=== PATIENT | male | born 1965 | race Caucasian/White ===

== ENCOUNTER 2017-04-24 17:51 | Emergency (ER) | payer OTHER ==
[~2017-04-24] VITALS: Ht 177.8 cm; Wt 113.4 kg
[2017-04-24] MEDS ORDERED: MOTRIN800 MG PO (21:10)
[2017-04-24] MEDS ORDERED: NORCO 5/3251 TABLET PO (21:10)
[2017-04-24] MEDS ORDERED: SKELAXIN800 MG PO (21:10)
[2017-04-24 21:26] VITALS: BP 142/90
== END 2017-04-24 21:27 | disposition home or self-care (01) ==
LOC: EME 17:51
DX: S29.012A Strain of muscle and tendon of back wall of thorax, initial encounter (principal); M25.511 Pain in right shoulder; X50.0XXA Overexertion from strenuous movement or load, initial encounter; Y93.89 Activity, other specified; F17.200 Nicotine dependence, unspecified, uncomplicated
CPT/HCPCS: 73030; 93005; 99281; 99284; J1885

== ENCOUNTER 2017-06-05 18:44 | Emergency (ER) | payer OTHER ==
[~2017-06-05] VITALS: Ht 177.8 cm; Wt 109.9 kg
[~2017-06-05 18:44] MED LIST: MOTRIN800 MG PO; NORCO 5/3251 TABLET PO; SKELAXIN800 MG PO
[2017-06-05 19:15] LABS: HEMOGLOBIN 15.6 G/DL (12.5-16.6); MCH 32.2 PG (29.0-34.0); MCHC 36.3 G/DL (30.0-36.0); MCV 88.7 FL (86-99); PLATELET COUNT 265 K/uL (156-360); RBC DIS.WIDTH-CV 11.9 % (11.8-14.6); RBC DIS.WIDTH-SD 38.3 % (39-53); RED BLOOD COUNT 4.85 M/uL (4.00-5.50); WHITE BLOOD COUNT 11.9 K/uL (4.1-10.2)
[2017-06-05 19:28] LABS: CHLORIDE 107 mEq/L (99-109); POTASSIUM 3.7 mEq/L (3.7-5.4); SODIUM 139 mEq/L (136-147)
[2017-06-05 19:30] LABS: GLUCOSE 135 mg/dL (70-99)
[2017-06-05 19:34] LABS: CREATININE 0.8 mg/dL (0.6-1.3); GFR ESTIMATE (CALCULATED) > 59 mL/min/ (58.99-99999)
[2017-06-05 19:35] LABS: TROP-I INTERPRETATION NEGATIVE; TROPONIN-I < 0.01 ng/mL (0.0-0.30); UREA NITROGEN (BUN) 14 mg/dL (9-23)
[2017-06-05 23:01] LABS: TROP-I INTERPRETATION NEGATIVE; TROPONIN-I < 0.01 ng/mL (0.0-0.30)
[2017-06-05] MEDS ORDERED: NAPROXEN500 MG PO (23:05)
[2017-06-05] MEDS ORDERED: ZITHROMAX Z-PA250 MG PO (23:14)
[2017-06-05 23:19] VITALS: BP 118/78
== END 2017-06-05 23:25 | disposition home or self-care (01) ==
LOC: EME 18:44
PROVIDERS: Physician Assistant
DX: R07.89 Other chest pain (principal); F17.200 Nicotine dependence, unspecified, uncomplicated
CPT/HCPCS: 71046; 80048; 84484; 85027; 93005; 99281; 99284

== ENCOUNTER → 2017-12-02 | Outpatient (CLI) | payer OTHER ==
[~2017-12-02] MED LIST changes: +ADVIL200 MG PO; +LAMISIL250 MG PO; +NAPROXEN500 MG PO; +OXYCODONE HCL10 MG PO; +TYLENOL325 M2 PO; +ZITHROMAX Z-PA250 MG PO
== END | disposition home or self-care (01) ==
LOC: OPR 08:35 → EDSTATUS 09:30 → OPR 09:30
PROC: 0QB23ZX Excision of Right Pelvic Bone, Percutaneous Approach, Diagnostic (ICD-10-PCS; principal; 2017-12-02)
DX: M89.9 Disorder of bone, unspecified (principal); R04.2 Hemoptysis; R10.9 Unspecified abdominal pain; Z87.891 Personal history of nicotine dependence; Z88.2 Allergy status to sulfonamides
CPT/HCPCS: 77012; 88305; 88341 TC; 88342 TC; J3010